=== PATIENT | female | born 1945 | race Caucasian/White ===

== ENCOUNTER 2020-03-28 19:42 | Inpatient (IN) | payer MEDICARE, SELFPAY ==
[2020-03-28] VITALS (41 sets, daily range): BP systolic 97–121; BP diastolic 56–91; PULSE 67–191; RESP 13–44; TEMP 35.9–36.8; O2SAT 96–99; BMI 32.1
--- NOTE | 2020-03-28 19:44 | XR_ITS ---
WS: [id number] PORTABLE CHEST HISTORY: cp COMPARISON: None available. Lungs are clear and well expanded. No pleural effusion or pneumothorax. Cardiac size: Normal. Mediastinum/Aorta: Partially calcified aorta. Degenerative changes at the AC joints. XR/XR chest 1V portable [id number] IMPRESSION: Partially calcified aorta. No acute cardiopulmonary disease.
--- NOTE | 2020-03-28 19:44 | ECG_ITS ---
Measurements Intervals [place] Rate: 191 P: MA: 0 QRS: 57 QRSD: 134 T: 215 QT: 260 QTc: 463 WIDE COMPLEX TACHYCARDIA POSSIBLY SUPRAVENTRICULAR TACHYCARDIA WITH ABBERRENCY INTRAVENTRICULAR CONDUCTION DELAY [130+ ms QRS DURATION] No previous ECG available for comparison Electronically Signed On 03-29-2020 19:42:27 CDT by Stefany Rehman M.D. [id number]
[2020-03-28 20:09] LABS: Basophils % 0.6 %; Eosinophils # 0.3 10^3/uL (0.0-0.8); Eosinophils % 4.2 %; Hematocrit 41.2 % (37.0-47.0); Hemoglobin 13.1 g/dL (11.5-15.3); Lymphocytes # 2.3 10^3/uL (0.8-4.8); Lymphocytes % 32.6 %; Mean Corpuscular HGB Conc 31.8 g/dL (30.0-36.0); Mean Corpuscular Hemoglobin 30.7 pg (28.0-34.0); Mean Corpuscular Volume 96.5 fL (81-99); Mean Platelet Volume 10.4 fL (7.4-10.4); Monocytes # 0.6 10^3/uL (0.2-0.9); Monocytes % 9.1 %; Neutrophils # 3.7 10^3/uL (1.8-7.7); Neutrophils % 53.1 %; Nucleated Red Blood Cells % 0 %; Platelet Count 367 10^3/cmm (130-400); Red Blood Count 4.27 10^6/uL (4.1-5.3); Red Cell Distribution Width 13.2 % (12.1-15.1); White Blood Count 6.9 10^3/uL (4.0-10.0)
[2020-03-28] MEDS: amiodarone 50 mg/mL SDV 3 mL 300 MG (20:20)
[2020-03-28 20:29] LABS: Alanine Aminotransferase 14 U/L (0-33); Albumin Level 4.4 g/dL (3.5-5.2); Alkaline Phosphatase 101 IU/L (35-105); Anion Gap 19.4 (5-19); Aspartate Amino Transferase 20 U/L (0-32); Blood Urea Nitrogen 14 mg/dL (8-23); Calcium 9.5 mg/dL (8.5-10.5); Carbon Dioxide 25 mmol/L (22-29); Chloride 96 mmol/L (98-107); Globulin 2.9 g/dL (1.3-4.6); Glucose 318 mg/dL (65-115); Magnesium 2.4 mg/dL (1.7-2.3); Osmolality Calculated 290 mOsm/kg (285-295); Potassium 4.4 mmol/L (3.5-5.1); Sodium 136 mmol/L (136-145); Total Bilirubin 0.2 mg/dL (0.15-1.2); Total Protein 7.3 g/dL (6.6-8.7)
[2020-03-28 20:31] LABS: Troponin(5th) Baseline 10 ng/mL (0-10)
--- NOTE | 2020-03-28 20:55 | W.ED.CHESTPA ---
HPI - Chest Pain General: Chief Complaint: Chest Pain Stated Complaint: cp Time Seen by Provider: 03/28/20 20:18 History of Present Illness: HPI narrative: Ms. Robert is a 74-year-old female who comes in complaining of chest discomfort. She states that she was at home when she had the abrupt onset of chest discomfort. She did not have any radiation of her symptoms it always stayed in her chest. She felt nauseated but did not vomit. She was slightly diaphoretic. Patient was not syncopal or near syncopal. Because of the chest discomfort though she was concerned about her heart this prompted her to come to the hospital for evaluation. She denies having anything like this in her past or any heart problems. She is unaware of anything that made her symptoms better or worse today. Associated symptoms: Reports dyspnea; Deny abdominal pain, diaphoresis, fever(s), nausea, palpitations, syncope or vomiting Review of Systems General: Reports: other (negative unless marked) Const: Denies: fever, chills, body aches, fatigue, malaise or diaphoresis Eyes: Denies: change in vision or blurry vision ENMT: Denies: throat pain, painful swallowing, hoarseness, ear pain, ear discharge, Change in hearing or nasal discharge Card: Reports: chest pain; Denies: palpitations, irregular heart rhythm, syncope, pre-syncope, shortness of breath on exertion or shortness of breath when lying down Resp: Reports: shortness of breath; Denies: productive cough, non-productive cough, wheezing, coughing up blood or chest congestion GI: Denies: abdominal pain, nausea, vomiting, vomiting blood, coffee grounds in vomit, diarrhea, constipation, cramping, blood in stool or black tarry stool : Denies: flank pain, painful urination, urinary frequency, urinary urgency, decreased urine ouput, urinary incontinence or blood in urine Musc: Denies: neck pain, back pain, extremity pain, extremity swelling, joint pain, joint swelling, joint warmth or joint stiffness Skin/Breast: Denies: rash, skin tenderness or yellow skin Neuro: Denies: headache, numbness in extremities, weakness in extremities, changes in sensation, lack of coordination, difficulty walking, dizziness, vertigo or confusion Endo: Denies: excessive thirst, tired all the time, cold intolerance, excessive sweating, flushing or hot flashes Daryl/Lymph: Denies: easy bruising, easy bleeding, petechiae or enlarged lymph nodes All/Imm: Denies: hives, throat swelling, tongue swelling, facial swelling or acute wheezing PFSH ED PFSH: Medical History Depression Diabetes mellitus GERD (gastroesophageal reflux disease) Hyperlipidemia Hypertension Surgical History H/O colonoscopy History of adenoidectomy History of lumpectomy of left breast History of tonsillectomy Tubal ligation status Family History (Updated 03/28/20 @ 22:03 by Remington Velásquez MD) Denies family history of Hyperlipidemia Lung disease Hypertension Social History (Updated 03/28/20 @ 22:03 by Remington Velásquez MD) Smoking and tobacco status: former smoker Alcohol intake: never Substance/Drug Use: never Household members: spouse Housing: House Physical Exam Const: COMMON NORMALS: no apparent distress, oriented x3, no limitations, healthy appearing and well nourished EXAM LIMITATIONS: no altered mental status GENERAL APPEARANCE: cooperative, well kempt and well developed ORIENTATION/CONSCIOUSNESS: Yes awake HENMT: COMMON NORMALS: normocephalic, head/scalp atraumatic, hearing grossly normal bilaterally, external ears normal, EAC's normal, external nose normal and moist oral mucous membranes HEAD & SCALP: normal to inspection, normocephalic and atraumatic FACE & SINUS: normal facial exam and face symmetric NOSE: external nose normal and nares normal EXTERNAL EAR: Yes external ears normal EXTERNAL AUDITORY CANAL: EAC's normal MOUTH: oral and palatal mucosa normal and tongue normal Eye: COMMON NORMALS: PERRL, EOMs intact bilaterally, conjunctivae normal and no scleral icterus GENERAL EYE: normal appearance of both eyes and normal light reflex CONJUNCTIVA: Yes conjunctivae normal SCLERA: sclerae normal CORNEA: Yes corneas normal PUPIL: Yes PERRL DIRECT OPHTHALMOSCOPY: Yes normal light reflex Neck/C-Spine: COMMON NORMALS: full ROM, no lymphadenopathy, supple, no meningeal signs and no JVD GENERAL: Yes normal visual inspection and Yes trachea midline CERVICAL SPINE: Yes cervical ROM normal Chest: COMMONS NORMALS: inspection of chest normal and palpation of chest normal Resp: COMMON NORMALS: normal respiratory effort, no retractions, no use of accessory muscles and clear to auscultation bilaterally EFFORT & INSPECTION: Yes able to speak in complete sentences AUSCULTATION: clear to auscultation bilaterally Cardio: COMMON NORMALS: no JVD, regular rhythm, S1 normal heart sound, S2 normal heart sound, no gallops, no clicks, no murmurs and no rub JUGULAR VENOUS DISTENTION: no JVD RATE: tachycardic RHYTHM: regular rhythm HEART SOUNDS: S1 normal and S2 normal GI: COMMON NORMALS: soft to palpation, non-tender, no hepatosplenomegaly and no masses INSPECTION: Yes normal to inspection PALPATION: Yes soft and Yes no hepatosplenomegaly : COMMON NORMALS: Yes no CVA tenderness BLADDER/KIDNEY EXAM: Yes no CVA tenderness Back/Pelvis: COMMON NORMALS: no CVA tenderness, thoracic and lumbar spine normal to inspection, no thoracic nor lumbar tenderness and thoraco-lumbar ROM normal Extremity: COMMON NORMALS: normal to inspection, full ROM, normal capillary refill, no joint enlargement, no clubbing, cyanosis or edema and no calf tenderness Neuro: COMMON NORMALS: oriented x3, CN's II-XII intact bilaterally, moves all extremities, no focal motor deficits and no sensory deficits noted MENINGEAL SIGNS: Yes no meningeal signs Psych: COMMON NORMALS: mental status grossly normal, thought process normal, cooperative, affect normal, speech normal and activity/motor behavior normal APPEARANCE: Yes well kempt SPEECH: Yes normal speech THOUGHT PROCESS: normal thought process Skin: COMMON NORMALS: no rashes or lesions noted, skin turgor normal, no jaundice, no petechiae and no mottling GENERAL SKIN EXAM: no rashes or lesions noted and turgor normal Course ED course: 2224 -the patient's heart rate has gone back up into the 180 range. It appears as again as though she is in a wide-complex tachycardia. The case was reviewed with Dr. Rehman by phone she recommends trying metoprolol to see if this slows her rate down and possibly convert her. If 1 dose is successful she recommends trying another. Dr. Velásquez is aware and is in agreement with this plan. Vital Signs: Vital signs: Vital Signs Temperature 96.7 F L 03/28/20 19:52 Pulse Rate 72 04/28/20 23:15 Respiratory Rate 44 H 03/28/20 23:15 Blood Pressure 121/60 03/28/20 23:15 Pulse Oximetry 98 03/28/20 23:15 MDM - Chest Pain MDM Narrative: Medical decision making narrative: Ms. Robert is a 74-year-old female who comes in with heart palpitations and chest pain. Her EKG immediately appeared as though she had a ventricular tachycardia but a normal blood pressure and normal mentation. She was in stable V. tach. There was no old EKG to compare to. She was given 2 separate amiodarone boluses of 150 mg over 10 minutes and then placed on a drip. Her heart rate slowed from the 190s down to the 150s but never got any slower. We were prepping to cardiovert her when her heart did convert and went to a sinus rhythm with what appears to be a left bundle branch block. We do not have any old EKGs to compare to to know if this left bundle branch block is old or a new issue. The case was reviewed with Dr. Rehman she agrees to consult on the patient in the ICU. I endorsed the case to Dr. Velásquez who will admit the patient to the ICU. At this time the working diagnosis is ventricular tachycardia although seeing a bundle branch block on the patient's second EKG does bring up the possibility of SVT with aberrancy or a flutter with aberrancy. The inpatient team can evaluate this further. Lab Data: Attestation: I reviewed the patient's lab results. Labs: Lab Results 03/28/20 03/28/20 03/28/20 Range/Units 20:02 20:02 20:02 WBC 6.9 (4.0-10.0) 10^3/ uL RBC 4.27 (4.1-5.3) 10^6/u L Hgb 13.1 (11.5-15.3) g/dL Hct 41.2 (37.0-47.0) % MCV 96.5 (81-99) fL MCH 30.7 (28.0-34.0) pg MCHC 31.8 (30.0-36.0) g/dL RDW 13.2 (12.1-15.1) % Plt Count 367 (130-400) 10^3/c mm MPV 10.4 (7.4-10.4) fL Neut % (Auto) 53.1 % Lymph % (Auto) 32.6 % [facility] % (Auto) 9.1 % Eos % (Auto) 4.2 % Baso % (Auto) 0.6 % Neut # (Auto) 3.7 (1.8-7.7) 10^3/u L Lymph # (Auto) 2.3 (0.8-4.8) 10^3/u L [facility] # (Auto) 0.6 (0.2-0.9) 10^3/u L Eos # (Auto) 0.3 (0.0-0.8) 10^3/u L Baso # (Auto) 0.0 (0.0-0.1) 10^3/u L Nucleated RBC % (a uto) 0 % Nucleated RBCs # 0.0 /100WBC D-Dimer (0-0.59) ug/mIFE U Sodium 136 (136-145) mmol/L Potassium 4.4 (3.5-5.1) mmol/L Chloride 96 L (98-107) mmol/L Carbon Dioxide 25 (22-29) mmol/L Anion Gap 19.4 H (5-19) BUN 14 (8-23) mg/dL Creatinine 1.4 H (0.5-0.9) mg/dL Glucose 318 H (65-115) mg/dL Calculated Osmolal ity 290 (285-295) mOsm/k g Calcium 9.5 (8.5-10.5) mg/dL Magnesium 2.4 H (1.7-2.3) mg/dL Total Bilirubin 0.2 (0.15-1.2) mg/dL AST 20 (0-32) U/L ALT 14 (0-33) U/L Alkaline Phosphata se 101 (35-105) IU/L Troponin T Baselin e 10 (0-10) ng/mL Total Protein 7.3 (6.6-8.7) g/dL Albumin 4.4 (3.5-5.2) g/dL Globulin 2.9 (1.3-4.6) g/dL 03/28/20 Range/Units 20:02 WBC (4.0-10.0) 10^3/ uL RBC (4.1-5.3) 10^6/u L Hgb (11.5-15.3) g/dL Hct (37.0-47.0) % MCV (81-99) fL MCH (28.0-34.0) pg MCHC (30.0-36.0) g/dL RDW (12.1-15.1) % Plt Count (130-400) 10^3/c mm MPV (7.4-10.4) fL Neut % (Auto) % Lymph % (Auto) % [facility] % (Auto) % Eos % (Auto) % Baso % (Auto) % Neut # (Auto) (1.8-7.7) 10^3/u L Lymph # (Auto) (0.8-4.8) 10^3/u L [facility] # (Auto) (0.2-0.9) 10^3/u L Eos # (Auto) (0.0-0.8) 10^3/u L Baso # (Auto) (0.0-0.1) 10^3/u L Nucleated RBC % (a uto) % Nucleated RBCs # /100WBC D-Dimer <= 0.27 (0-0.59) ug/mIFE U Sodium (136-145) mmol/L Potassium (3.5-5.1) mmol/L Chloride (98-107) mmol/L Carbon Dioxide (22-29) mmol/L Anion Gap (5-19) BUN (8-23) mg/dL Creatinine (0.5-0.9) mg/dL Glucose (65-115) mg/dL Calculated Osmolal ity (285-295) mOsm/k g Calcium (8.5-10.5) mg/dL Magnesium (1.7-2.3) mg/dL Total Bilirubin (0.15-1.2) mg/dL AST (0-32) U/L ALT (0-33) U/L Alkaline Phosphata se (35-105) IU/L Troponin T Baselin e (0-10) ng/mL Total Protein (6.6-8.7) g/dL Albumin (3.5-5.2) g/dL Globulin (1.3-4.6) g/dL Imaging Data^: CXR: My impression: No acute cardiopulmonary findings. EKG Data^: EKG 1: Attestation: I personally reviewed and interpreted this EKG as follows: EKG interpretation date: 03/28/20 EKG interpretation time: 19:49 Interpretation: Wide-complex tachycardia, probable ventricular tachycardia with a ventricular rate of 191. No old for comparison. EKG 2: Attestation: I personally reviewed and interpreted this EKG as follows: EKG interpretation date: 03/28/20 EKG interpretation time: 20:35 Interpretation: Normal sinus rhythm with a ventricular rate of 95 beats a minute, left bundle branch block, nonspecific ST and T wave changes. No old for comparison. Critical Care Time Critical Care Time: Critical Care Time: Yes Total Critical Care Time: 60 Attestation: Critical care time consisted of evaluating the patient, stabilizing the patient. Critical care time consisted of overseeing nursing place IVs and arranging for fluids, close blood pressure and vital sign monitoring. Critical care time consisted of overseeing antiarrhythmic medications being infused and a drip initiated. Critical care time consisted of prepping for possible cardioversion although this was not performed. Critical care time also consisted of phone consultation with specialist as well as old chart review. Discharge Plan Discharge Patient Disposition: Admitted As Inpatient Admit Provider: Remington Velásquez Clinical Impression: Ventricular tachycardia Condition: Stable Referrals: Sunil Baldwin MD [Primary Care Provider] - Discharge Date/Time: 03/28/20 23:22 Coding Level of Care Code ED Commercial Sales Manager for Chg Fwd Exam Comprehensive
--- NOTE | 2020-03-28 21:06 | P.HP_ITS ---
Providers/Chief Complaint Primary Care Provider: Sunil Baldwin MD Chief Complaint: cp History of Present Illness Paige Robert is a 74 year old female with no significant past medical history of coronary disease, [place] with chief complaint of chest heaviness. 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 She did not experience any palpitations, nausea, vomiting, diaphoresis. She is denying any previous history of coronary disease, stents, [place]. She has never experienced these kind of symptoms before. She is denying sick contacts, exertional activities, smoking, recreational drugs, social stressors. Diagnostics in ER revealed wide QRS tachycardia, she was given amiodarone 150 mg twice which converted her rhythm to normal sinus, initially her blood pressure was systolic 90 mmHg (ER physician was planning to do electrical cardioversion )which improved after converting to normal sinus rhythm Dr. Rehman has been notified Normal potassium and magnesium level Negative d-dimer Review of Systems Const: Denies: fever, chills or body aches Eyes: Denies: change in vision ENMT: Denies: throat pain Card: Reports: chest pain and palpitations; Denies: swelling of feet/ankles, syncope or pre-syncope Resp: Reports: shortness of breath; Denies: productive cough or non-productive cough GI: Denies: abdominal pain, nausea, vomiting or coffee grounds in vomit : Reports: flank pain; Denies: difficulty urinating Musc: Denies: neck pain or back pain Skin/Breast: Denies: rash Neuro: Denies: headache Psych: Denies: anxiety Endo: Denies: excessive urination Daryl/Lymph: Denies: easy bruising All/Imm: Denies: hives Medications/Allergies Home Medications Medication Instructions Recorded Confirmed Last Taken Type ascorbic acid (vitamin C) [Vitamin 1,000 mg PO Q12H 03/28/20 03/28/20 03/28/20 History C] aspirin 81 mg PO DAILY 03/28/20 03/28/20 03/28/20 History atorvastatin 200 mg PO DAILY 03/28/20 03/28/20 03/28/20 History cholecalciferol (vitamin D3) 25 mcg PO DAILY 03/28/20 03/28/20 03/28/20 History [Vitamin D3] empagliflozin [Jardiance] 10 mg PO DAILY 03/28/20 03/28/20 03/28/20 History insulin glargine [Lantus U-100 See Rx Instructions .ROUTE .COMPLEX 03/28/20 03/28/20 03/27/20 History Insulin] iron 325 mg PO DAILY 03/28/20 03/28/20 03/28/20 History lisinopril 10 mg PO DAILY 03/28/20 03/28/20 03/28/20 History magnesium 200 mg PO DAILY 03/28/20 03/28/20 03/28/20 History metformin 1,000 mg PO BID 03/28/20 03/28/20 03/28/20 History sertraline 50 mg PO DAILY 03/28/20 03/28/20 03/28/20 History Allergies Allergy/AdvReac Type Severity Reaction Status Date / Time No Known Allergies Allergy Verified 03/28/20 19:58 PFSH Acute PFSH: Medical History Depression Diabetes mellitus GERD (gastroesophageal reflux disease) Hyperlipidemia Hypertension Surgical History H/O colonoscopy History of adenoidectomy History of lumpectomy of left breast History of tonsillectomy Tubal ligation status Family History (Updated 03/28/20 @ 22:03 by Remington Velásquez MD) Denies family history of Hyperlipidemia Lung disease Hypertension Social History (Updated 03/28/20 @ 22:03 by Remington Velásquez MD) Smoking and tobacco status: former smoker Alcohol intake: never Substance/Drug Use: never Household members: spouse Housing: House Vitals/I&O/Wt Last Vital Signs Temp 96.7 F L 03/28/20 19:52 Pulse 169 H 03/28/20 20:21 Resp 19 H 03/28/20 20:21 BP 107/83 03/28/20 20:21 Pulse Ox 96 03/28/20 20:21 Weight last 48 hrs Weight 77.111 kg Physical Exam Narrative: EXAM NARRATIVE: Very pleasant female lying comfortably in her bed Normal hemodynamics Telemetry shows normal sinus rhythm heart rate 60s to 80s, blood pressure 111/60 Saturating well on room air No active chest pain S1, S2 no murmur No signs of heart failure Neurologically nonfocal exam Abdomen soft nontender nondistended Lungs are clear to auscultation EOMI, PERRLA Skin does not show any sign ischemia gangrene or ulcer Appropriate mood and affect Data : 03/28/20 20:02 03/28/20 20:02 A&P Assessment and plan (1) Wide QRS ventricular tachycardia: Status: Acute Additional A&P Information Wide QRS tachycardia No inciting event identified uptill now, no previous history of coronary disea se, patient is denying family history of structural heart disease, she has been working outside but she thinks she never exerted herself, no social stressors EKG showed wide QRS tachycardia which improved with amiodarone, normal potassium and mag level Current EKG showing normal sinus rhythm with left bundle branch block I believe she had catecholaminergic surge from her physical activity which in duced SVT with aberrant conduction which looked like V. tach Echo in the morning to rule out structural heart disease Cardiology is consulted, baseline troponin not significantly high(waiting for 2-hour troponin) I would not order stress test at this point however she has risk factors for coronary disease, I will keep her n.p.o. after midnight in case cardiology recommends ruling out coronary ischemia Type 2 diabetes: Cardiac diet, moderate sliding scale We will check A1c level, current blood sugar 318 MIKAYLA: I do not have baseline creatinine, I would hold lisinopril for now Patient does not look fluid overloaded or dehydrated Monitor creatinine, patient is denying signs of UTI, Full code DVT prophylaxis: Heparin Attestations Medical Necessity Statement*: Anticipating discharge in less than 48 hours continued ICU because she presented with paroxysmal wide QRS tachycardia currently stable on amiodarone Time Spent in Patient Care: 40 Coding Level of Care Code Acute Medical Billing Coordinator for Latanya Sexton Diagnoses Wide QRS ventricular tachycardia I47.2
--- NOTE | 2020-03-28 21:44 | ECG_ITS ---
Measurements Intervals [place] Rate: 95 P: 52 [place]: 152 QRS: 46 QRSD: 142 T: 108 QT: 408 QTc: 514 SINUS RHYTHM LEFT BUNDLE BRANCH BLOCK No previous ECG available for comparison Electronically Signed On 03-29-2020 19:47:57 CDT by Stefany Rehman M.D. [email or web address]
[2020-03-28 21:51] LABS: D Dimer <= 0.27 ug/mIFEU (0-0.59)
[2020-03-28 22:05] LABS: Troponin 5 2HR 25.25 ng/mL (0-10)
[2020-03-28 22:17] LABS: Troponin 5 2HR Delta 15.25 ABS# (0-10)
--- NOTE | 2020-03-28 22:42 | ECG_ITS ---
Measurements Intervals [place] Rate: 69 P: 31 [place]: 139 QRS: 49 QRSD: 88 T: 38 QT: 435 QTc: 468 SINUS RHYTHM WARNING: DATA QUALITY MAY AFFECT INTERPRETATION No previous ECG available for comparison Electronically Signed On 03-29-2020 19:34:43 CDT by Stefany Rehman M.D. [id number]
[2020-03-28] MEDS: metoprolol tartrate 1 mg/1 mL SDV 5 mL 5 MG IV ×2 (22:44)
[2020-03-28 23:26] LABS: Urine Appearance Clear (CLEAR); Urine Color Yellow (Yellow); pH Urine 6 (5-7)
[2020-03-28 23:27] LABS: Amphetamines Screen Urine Negative (Negative); Bacteria Urine TRACE; Barbiturates Screen Urine Negative (Negative); Benzodiazepines Screen Urine Negative (Negative); Bilirubin Urine Neg (NEGATIVE); Blood Urine Neg (Negative); Cocaine Screen Urine Negative (Negative); Glucose Urine UA 4+ (Normal); Ketones Urine Negative (Negative); Leukocyte Esterase Urine Negative (Negative); Nitrate Urine Negative (Negative); Opiate Screen Urine Negative (Negative); PCP Screen Urine Negative (Negative); Protein Urine Neg (Negative); RBC Urine 0-4 /hpf (0-2); Squamous Epithelial Cell Urine RARE (0-5); THC Screen Urine Negative (Negative); Urobilinogen Urine Norm (Negative); WBC Urine 0-4 /hpf (0-5)
[2020-03-28 23:50] LABS: Estmated Average Glucose 212
[2020-03-29] VITALS (92 sets, daily range): BP systolic 96–145; BP diastolic 47–76; PULSE 58–95; RESP 10–28; TEMP 36.4–36.8; O2SAT 92–97
[2020-03-29 00:03] LABS: Thyroid Stimulating Hormone 3.07 uIU/mL (0.27-4.20)
[2020-03-29] MEDS: heparin 5,000 unit/mL INJ 1 mL 5000 UNIT SUBCUT (00:07)
--- NOTE | 2020-03-29 01:44 | ECG_ITS ---
Measurements Intervals [place] Rate: 68 P: 46 [place]: 148 QRS: 56 QRSD: 86 T: 41 QT: 435 QTc: 463 SINUS RHYTHM LOW QRS VOLTAGE IN PRECORDIAL LEADS [QRS DEFLECTION < 1.0 mV IN CHEST LEADS] No previous ECG available for comparison Electronically Signed On 03-29-2020 19:46:48 CDT by Stefany Rehman M.D. [id number] f
[2020-03-29 02:07] LABS: Troponin 5 6HR 95.25 ng/mL (0-10)
[2020-03-29 02:10] LABS: Troponin 5 6HR Delta 85.25 ng/L (0-12)
[2020-03-29 02:55] LABS: Basophils % 0.5 %; Eosinophils # 0.3 10^3/uL (0.0-0.8); Eosinophils % 4.1 %; Hemoglobin 10.3 g/dL (11.5-15.3); Lymphocytes # 2.2 10^3/uL (0.8-4.8); Lymphocytes % 28.1 %; Mean Corpuscular HGB Conc 30.3 g/dL (30.0-36.0); Mean Corpuscular Hemoglobin 29.8 pg (28.0-34.0); Mean Corpuscular Volume 98.3 fL (81-99); Mean Platelet Volume 10.6 fL (7.4-10.4); Monocytes # 0.8 10^3/uL (0.2-0.9); Monocytes % 9.8 %; Neutrophils # 4.4 10^3/uL (1.8-7.7); Neutrophils % 57.2 %; Nucleated Red Blood Cells % 0 %; Platelet Count 301 10^3/cmm (130-400); Red Blood Count 3.46 10^6/uL (4.1-5.3); Red Cell Distribution Width 13.4 % (12.1-15.1); White Blood Count 7.6 10^3/uL (4.0-10.0)
[2020-03-29 03:10] LABS: Anion Gap 15.4 (5-19); Blood Urea Nitrogen 14 mg/dL (8-23); Calcium 8.7 mg/dL (8.5-10.5); Carbon Dioxide 25 mmol/L (22-29); Chloride 104 mmol/L (98-107); Glucose 187 mg/dL (65-115); Osmolality Calculated 291 mOsm/kg (285-295); Potassium 4.4 mmol/L (3.5-5.1); Sodium 140 mmol/L (136-145)
[2020-03-29] MEDS: clopidogrel 300 mg Tablet PO (03:43)
[2020-03-29] MEDS: atorvastatin 40 mg Tablet 80 MG PO ×2 (03:43→20:42)
[2020-03-29] MEDS: aspirin 325 mg EC Tablet PO (03:43)
[2020-03-29 03:50] LABS: Partial Thromboplastin Time 29.5 SECONDS (23.9-36.7)
[2020-03-29] MEDS: heparin 5,000 unit/mL INJ 1 mL IV (04:20)
[2020-03-29] MEDS: heparin drip 25,000 UNIT/500 ML PREMIX 23 UNIT IV (04:21)
--- NOTE | 2020-03-29 07:00 | USCV_ITS ---
Robert Paige Age: 74 Gender: F : 1945 Exam Date: 03/29/2020 06:14 Ordering Phys: Remington Velásquez MD Technologist: Lore Gomez Exam Location: [facility] Indication: TACHYCARDIA BP: 116 / 64 HR: 65 Rhythm: Sinus Technical Quality: Adequate MEASUREMENTS (Male / Female) Normal Values 2D ECHO LV Diastolic Diameter PLAX 3.6 cm 4.2 - 5.9 / 3.9 - 5.3 cm LV Systolic Diameter PLAX 1.9 cm LV Chamber Size 2.8 cm IVS Diastolic Thickness 1.1 cm 0.6 - 1.0 / 0.6 - 0.9 cm IVS Systolic Thickness 1.2 cm LVPW Diastolic Thickness 1.8 cm 0.6 - 1.0 / 0.6 - 0.9 cm LVPW Systolic Thickness 2.1 cm RV Chamber Size 3.1 cm LVOT Diameter 2.0 cm LV Ejection Fraction 2D Teich 78.6 % LV Ejection Fraction MOD 2C 73.4 % LV Ejection Fraction 2C AL 73.5 % LA Diameter 4.4 cm LA Width 3.7 cm LA Height 4.3 cm RA Width 3.5 cm RA Height 3.3 cm M-MODE LV Diastolic Diameter MM 4.4 cm 4.2 - 5.9 / 3.9 - 5.3 cm LV Systolic Diameter MM 3.2 cm LV Ejection Fraction MM Teich 53.5 % IVS Diastolic Thickness MM 0.8 cm 0.6 - 1.0 / 0.6 - 0.9 cm IVS Systolic Thickness MM 0.9 cm LVPW Diastolic Thickness MM 1.1 cm 0.6 - 1.0 / 0.6 - 0.9 cm LVPW Systolic Thickness MM 1.4 cm Aortic Annulus Diameter 2.5 cm LA Ao Ratio MM 1.8 MV E Point Septal Separation 0.9 cm DOPPLER AV Peak Velocity 199.0 cm/s LVOT Peak Velocity 89.0 cm/s AV Area Cont Eq vti 1.5 cm squared AV Area Cont Eq pk 1.5 cm squared MV Area PHT 4.6 cm squared Mitral E to A Ratio 1.9 MV E' Velocity 14.0 cm/s Mitral E to MV E' Ratio 7.4 Mitral E to LV E' Lateral Ratio 6.5 Mitral E to LV E' Septal Ratio 8.5 TR Peak Velocity 192.0 cm/s TR Peak Gradient 14.7 mmHg TV Peak E Velocity 38.0 cm/s Right Atrial Pressure 3.0 mmHg Pulmonary Artery Systolic Pressu 17.7 mmHg PV Peak Velocity 64.0 cm/s RV Acceleration Time 0.1 s RV Ejection Time 0.4 s RV AcT/ET 0.3 FINDINGS Left Ventricle Normal left ventricular cavity size. Normal left ventricular systolic function. No regional wall motion abnormalities. Left ventricular ejection fraction is estimated at 55 %. Grade II/IV diastolic dysfunction, moderately elevated filling pressures. Right Ventricle The right ventricle is normal in size and function. Right Atrium The right atrium is normal in size. Left Atrium The left atrium is normal in size. Mitral Valve Moderately thickened mitral valve. No mitral valve stenosis. Trace mitral valve regurgitation. Aortic Valve Moderate aortic valve calcification. Mild aortic valve stenosis, mean gradient 8.4 mmHg, DEON 1.5 cm squared. Trace aortic valve regurgitation. Tricuspid Valve Structurally normal tricuspid valve without significant stenosis or regurgitation. Pulmonary artery systolic pressure is normal. Pulmonic Valve Structurally normal pulmonic valve without significant stenosis. There is no pulmonic regurgitation. Pericardium Normal pericardium without effusion. Aorta Normal ascending aorta dimension. CONCLUSIONS 1-Normal left ventricular cavity size. Normal left ventricular systolic function. No regional wall motion abnormalities. Left ventricular ejection fraction is estimated at 55 %. Grade II/IV diastolic dysfunction, moderately elevated filling pressures. 2-Moderate aortic valve calcification. Mild aortic valve stenosis, mean gradient 8.4 mmHg, DEON 1.5 cm squared. Trace aortic valve regurgitation. 3-Moderately thickened mitral valve. No mitral valve stenosis. Trace mitral valve regurgitation. 4-There is no pericardial effusion. 5-Pulmonary artery systolic pressure is within normal limits. 6-Right atrial pressure is around 5 mm of mercury. 7-There are no prior echocardiogram studies to compare. Remington Felix MD (Electronically Signed) Final Date: 29 March 2020 08:56 S
--- NOTE | 2020-03-29 08:00 | PC.NURSE ---
Amiodarone gtt titrated to 0.5 mg/min.
--- NOTE | 2020-03-29 08:10 | PC.NURSE ---
Pt's blood glucose at 0745 was 148. Glucometer not scanned on pt.
--- NOTE | 2020-03-29 09:00 | PC.NURSE ---
Advised by Dr Timmy Rodriguez to hold [address] Patel arrives to see pt closer to 10 to determine potential med changes.
--- NOTE | 2020-03-29 09:13 | P.PN_ITS ---
Subjective Subjective: Interval history: History and physical reviewed. Patient reports during episode she had chest discomfort, sweating, shortness of breath. She reports she has absolutely no symptoms now and feels fine. She also relates she had no preceding symptoms prior to this event. Medications: Reviewed: Yes Vitals/I&O/Wt Last Vital Signs Temp 98.2 F 03/28/20 23:20 Pulse 93 03/29/20 07:33 Resp 19 H 03/29/20 06:10 BP 116/64 03/29/20 06:10 Pulse Ox 95 03/29/20 07:33 03/28/20 03/29/20 03/29/20 22:59 06:59 14:59 Intake Total 0 / 0 Output Total 400 / 400 Balance -400 / -400 Weight last 48 hrs Weight 77.111 kg Physical Exam Narrative: EXAM NARRATIVE: General exam no apparent distress Cardiovascular regular rate and rhythm without murmur Lungs clear Abdomen is soft with positive bowel sounds Extremities no cyanosis clubbing or edema Data : 03/29/20 02:48 03/29/20 02:48 A&P Assessment and plan (1) Wide QRS ventricular tachycardia: Following conversion of tachycardia she was in a left bundle. Now she is in a narrow complex normal sinus rhythm. She is currently on an amiodarone drip. Metoprolol has been initiated. Magnesium level was normal. TSH was normal. Status: Acute Additional A&P Information Acute kidney injury, improved chest discomfort. Troponin with significant increase. Consistent with non-ST elevation myocardial infarction. Plavix, aspirin, beta-sarah, anticoagulation with heparin, and statin have all been initiated. Cardiology to evaluate. Echocardiogram pending. Type 2 diabetes. Sliding scale. Reduce Lantus dose to 15 units as she may be n.p.o. at times. Full code DVT prophylaxis with heparin Attestations Medical Necessity Statement*: Needs continued hospitalization for further evaluation of tachyarrhythmia. Coding Level of Care Code Acute Windows Software Engineer for Latanya Sexton Diagnoses Wide QRS ventricular tachycardia I47.2
--- NOTE | 2020-03-29 10:24 | XACV_ITS ---
Exam Room: [facility] Ht: 155 cm Wt: 77 kg BSA: 1.85 m2 Gender: Female : 1945 Any Known Allergies: No known allergies Exam Priority: Routine Procedure(s): Procedure Description: Diagnostic procedure Procedure Description: Left Heart Catheterization Procedure Description: Coronary Angiography Diagnostic Findings LM has 0% stenosis. CX has 0% stenosis. pLAD: Mild 20% stenosis, MARC: 3 flow. pRCA: Mild 20% stenosis, MARC: 3 flow. Coronary angiography shows left dominance. Conclusions There appeared to be separate ostium without left main #1 LAD has luminal irregularity#2 LCx is luminal irregularities it is a dominant vessel#3 RCA is nondominant small vessel with proximal 20% stenosis . Indication for angiogram: Abnormal cardiac markers, dyspnea chest pain. Recommendations Continue current medical management and risk factor modification. Diagnostic RX Recommendation: medical therapy and/or counseling Pressures Phase:Rest AO : 105 mmHg / 51 mmHg ( 73 mmHg ) @ 7:38:00 AM 110 mmHg / 52 mmHg ( 75 mmHg ) @ 7:38:00 AM 91 mmHg / 64 mmHg ( 78 mmHg ) @ 7:40:00 AM 80 mmHg / 60 mmHg ( 70 mmHg ) @ 7:41:00 AM LV : 116 mmHg / -7 mmHg / @ 7:38:00 AM 117 mmHg / -6 mmHg / @ 7:38:00 AM Valves Phase:DefaultPhase AV : 11.0 mmHg @ 12:49:12 PM AV Mean Gradient: 12.0 mmHg @ 12:49:12 PM Clinical Evaluation EBL: 5mL-10mL Procedural Details Procedure Consent Obtained. Current Diagnosis : Chest Pain. Pre-Procedure Time Out. Identified patient by full name and date of as verbalized by the patient/guarantor. Does the consent match the physician's order: Yes. Accurate & Complete Informed Consent: Yes. Inpatient/Outpatient History & Physical on Chart: Yes. If H&P is completed, is and addenduem needed: No; If yes, is the addendum complete: N/A. Visualize and Verify Site with Patient/Guarantor: N/A. Relevant Radiology Images available: Yes. Pre-op teaching completed and patient verbalized understanding. The risks, benefits, and alternatives of sedation and/or procedure were discussed by physician. The patient agrees to continue. Procedure started. [facility] Clinical Fraility Score: 3: Managing Well. Desktop Support Associate Indications: Cardiac Arrhythmia. Chest Pain Symptom Assessment: Typical Angina Symptoms. Correct patient, site and procedure confirmed by cath team. Current diagnosis: Chest Pain. PERRLA. 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 Lungs clear x 5 lobes. Physician arrived. IV Site on Arrival: 20 gauge in the right anticubital. IV Fluids: 0.9% NaCl at KVO. 0 mL infused prior to labor economist. Oxygen started at 2liters/min via nasal canula. right radial was prepped with chloroprep then draped in the usual sterile fashion. right groin was prepped with chloroprep then draped in the usual sterile fashion. Baseline sample Acquired. HR: 68 BPM. Patient's family unavailable due to patient visitor policy. Dr. Felix called the patients before starting the procedure. Physician scrubbed in. Immediate Pre-Procedure Time Out. Correct Patient: Yes; Correct Procedure: Yes; Correct Site: Yes; Correct Patient Position: Yes; Correct Supplies: Yes; Dried Flammable Prep: Yes; Blood Products Available: N/A;. Lidocaine 1% infiltrated to the right radial. Arterial access obtained. A 5 colombian TIG catheter in over wire. EDP Sample taken: LV 116/-7,4; HR: 70 BPM; SpO2: 99%. Pullback taken: LV 117/-7,4; AO 105/51(73); Mean: 12mmHg, Peak to Peak: 11mmHg, SEP: 20sec/min; HR: 70 BPM; SpO2: 98%. Multiple views taken of left coronary artery. Catheter redirected to the RCA. Multiple views taken of right coronary artery. Catheter removed over the exchange wire. Physician scrubbed out. TR band placed. Hemostasis obtained. A TR Band was successful obtaining hemostatsis at the Right Radial artery insertion site. Post Procedure: Pulses reassessed and unchanged. PERRLA. 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 No VTE prophylaxis required. Medication's Wasted: Lidocaine 1% = 18 mL. Medication's Wasted: Heparin = 1000 units. Total IV fluids: 29.2 mL. Contrast type used: Omnipaque 300 mgI/mL, 500 mL bottle. Post-op diagnosis: Nornal Coronaries. Complications: None. Estimated blood loss: 5mL-10mL. Procedure completed. Patient transferred by wheelchair to ICU. Vital chart was stopped. Site: Right Radial artery Sheath Size: 6 Fr Hemostasis Method: TR Band Hemostasis Success: Successful Procedure Medications Start: 12:25 PM Stop: 12:25 PM Medication: Versed Amount: 1 mg Route: I.V. Start: 12:25 PM Stop: 12:25 PM Medication: Fentanyl Amount: 50 mcg Route: I.V. Start: 12:36 PM Stop: 12:36 PM Medication: Nitrogylcerin Amount: 200 mcg Route: I.A. Start: 12:40 PM Stop: 12:40 PM Medication: Versed Amount: 1 mg Route: I.V. Start: 12:40 PM Stop: 12:40 PM Medication: Fentanyl Amount: 50 mcg Route: I.V. I, the attending physician, have reviewed and verified all procedure medications. Yes, all medications given per verbal order History/Risk Factors Hypertension: Yes Dyslipidemia: No Diabetic Therapy: Insulin Peripheral Arterial Disease (PAD): No Myocardial Infarction (WI): No Obesity: No Renal Disease: No Tobacco Use: Former Prior Interventions PCI: No CABG: No Valve Surgery: No Report Signatures Finalized by:Remington Felix MD on 04/02/2020 3:07:46 PM
--- NOTE | 2020-03-29 10:26 | PM.CONSULT ---
Providers/Reason For Consult Consulting Physican/Specialty*: Dr. Rehman, cardiology Reason for Consult*: Wide-complex tachycardia Attending Physician: Blu Rodriguez MD Primary Care Provider: Sunil Baldwin MD History of Present Illness History of Present Illness Paige Robert is a 74 year old female with past medical history of hypertension, insulin-dependent diabetes mellitus type 2 and hyperlipidemia for last 17 years. She is also a former smoker and quit smoking in 2005 after [id number] history of smoking. She denies having any prior CAD and prior ischemia testing. At baseline she is able to push her lawn more and walk 2 and half miles without any exertional symptoms. She did that about a week back. Yesterday she was in her usual state of health when around 7 PM she bent over and developed some chest pressure along with shortness of breath anxious feeling and some sweating. She presented to the ER with her and EKG revealed wide complex tachycardia at 191 bpm. Her baseline troponin was 10 and electrolytes were within normal limits. She was hemodynamically stable and received amiodarone 150 mg IV x1 that slowed her down followed by another amiodarone 150 mg IV bolus that converted her to sinus rhythm with left bundle branch block. Later on in the night she went back into this rhythm and converted to sinus rhythm after administration of metoprolol 5 mg IV. She has done well overnight. Telemetry reveals sinus rhythm with PVC couplets/aberrant PACs. At the time of evaluation she remains chest pain-free. Review of Systems Const: Denies: fever, chills or body aches Eyes: Denies: change in vision ENMT: Denies: throat pain Card: Reports: chest pain and palpitations; Denies: swelling of feet/ankles, syncope or pre-syncope Resp: Reports: shortness of breath; Denies: productive cough or non-productive cough GI: Denies: abdominal pain, nausea, vomiting or coffee grounds in vomit : Reports: flank pain; Denies: difficulty urinating Musc: Denies: neck pain or back pain Skin/Breast: Denies: rash Neuro: Denies: headache Psych: Denies: anxiety Endo: Denies: excessive urination Daryl/Lymph: Denies: easy bruising All/Imm: Denies: hives Meds/Allergies Home Medications and Allergies Home Medications Medication Instructions Recorded Confirmed Last Taken Type ascorbic acid (vitamin C) [Vitamin 1,000 mg PO Q12H 03/28/20 03/28/20 03/28/20 History C] aspirin 81 mg PO DAILY 03/28/20 03/28/20 03/28/20 History atorvastatin 200 mg PO DAILY 03/28/20 03/28/20 03/28/20 History cholecalciferol (vitamin D3) 25 mcg PO DAILY 03/28/20 03/28/20 03/28/20 History [Vitamin D3] empagliflozin [Jardiance] 10 mg PO DAILY 03/28/20 03/28/20 03/28/20 History insulin glargine [Lantus U-100 See Rx Instructions .ROUTE .COMPLEX 03/28/20 03/28/20 03/27/20 History Insulin] iron 325 mg PO DAILY 03/28/20 03/28/20 03/28/20 History lisinopril 10 mg PO DAILY 03/28/20 03/28/20 03/28/20 History magnesium 200 mg PO DAILY 03/28/20 03/28/20 03/28/20 History metformin 1,000 mg PO BID 03/28/20 03/28/20 03/28/20 History sertraline 50 mg PO DAILY 03/28/20 03/28/20 03/28/20 History Allergies Allergy/AdvReac Type Severity Reaction Status Date / Time No Known Allergies Allergy Verified 03/28/20 19:58 Current Medications Current Medications Generic Name Dose Route Start Last Admin Trade Name Freq PRN Reason Stop Dose Admin Atorvastatin Calcium 80 mg 03/29/20 02:40 03/29/20 03:43 Lipitor PO 80 mg BEDTIME GERTRUDE Administration Heparin Sodium (Beef Lung) 0 unit 03/29/20 02:36 03/29/20 04:20 Heparin IV 4,100 unit PRN PRN Administration Heparin weight-base protocol Protocol Amiodarone HCl 900 mg/ 518 mls @ 0 mls/hr 03/28/20 23:20 03/29/20 08:00 Dextrose/ IV Miscellaneous IV 0.5 mg/min Supplies .Q0M GERTRUDE 17.3 mls/hr Administration Protocol Per Protocol Heparin Sodium/Sodium Chloride 25,000 unit in 500 mls @ 0 mls/hr 03/29/20 02:45 03/29/20 04:21 Heparin Drip IV 14.91 unit/kg/hr .Q0M GERTRUDE 23 mls/hr Administration Protocol Per Protocol Insulin Aspart 0 unit 03/29/20 08:00 03/29/20 08:28 Novolog SUBCUT 4 unit WM&BEDTIME GERTRUDE Administration Protocol Lisinopril 10 mg 03/29/20 09:00 03/29/20 10:25 Prinivil PO Not Given DAILY GERTRUDE PFSH Acute PFSH: Medical History Depression Diabetes mellitus GERD (gastroesophageal reflux disease) Hyperlipidemia Hypertension Surgical History H/O colonoscopy History of adenoidectomy History of lumpectomy of left breast History of tonsillectomy Tubal ligation status Family History Denies family history of Hyperlipidemia Lung disease Hypertension Social History (Updated 03/28/20 @ 22:03 by Remington Velásquez MD) Smoking and tobacco status: former smoker Alcohol intake: never Substance/Drug Use: never Household members: spouse Housing: House Vitals/I&O/Wt Last Vital Signs Temp 98.2 F 03/28/20 23:20 Pulse 63 03/29/20 08:00 Resp 13 03/29/20 08:00 BP 125/66 03/29/20 08:00 Pulse Ox 95 03/29/20 07:33 03/28/20 03/29/20 03/29/20 22:59 06:59 14:59 Intake Total 0 / 0 Output Total 400 / 400 Balance -400 / -400 Weight last 48 hrs Weight 170 lb Physical Exam Const: COMMON NORMALS: no apparent distress, oriented x3 and alert GENERAL APPEARANCE: cooperative, comfortable, well kempt and well hydrated HENMT: COMMON NORMALS: normocephalic, head/scalp atraumatic, hearing grossly normal bilaterally, external ears normal, external nose normal and moist oral mucous membranes HEAD & SCALP: normocephalic and atraumatic FACE & SINUS: normal facial exam NOSE: external nose normal EXTERNAL EAR: Yes external ears normal Eye: COMMON NORMALS: PERRL, EOMs intact bilaterally, conjunctivae normal and no scleral icterus GENERAL EYE: normal appearance of both eyes EYELID: eyelids normal CONJUNCTIVA: Yes conjunctivae normal SCLERA: sclerae normal PUPIL: Yes PERRL Neck/C-Spine: COMMON NORMALS: no lymphadenopathy, supple, no JVD and thyroid normal THYROID: thyroid normal CAROTIDS: Yes normal carotid upstroke CERVICAL SPINE: Yes cervical ROM normal Chest: COMMONS NORMALS: inspection of chest normal and palpation of chest normal CHEST: Yes symmetrical chest wall rise and No tenderness Resp: COMMON NORMALS: clear to auscultation bilaterally and percussion normal AUSCULTATION: clear to auscultation bilaterally, no crackles, no rales, no rhonchi, no wheezes and vesicular breath sounds PERCUSSION: percussion normal Cardio: COMMON NORMALS: no JVD, regular rate, regular rhythm, S1 normal heart sound, S2 normal heart sound and peripheral pulses 2+ throughout PALPATION: normal PMI RATE: regular rate RHYTHM: regular rhythm HEART SOUNDS: S1 normal, S2 normal, no click, no gallops and no murmurs BRUITS: no carotid bruits PERIPHERAL PULSES: pulses 2+ throughout, radial pulses present, femoral pulses present, posterior tibial pulses present and dorsalis pedis pulses present GI: COMMON NORMALS: soft to palpation AUSCULTATION: Yes normoactive bowel sounds PALPATION: Yes soft, No tender, No guarding, No rigid and No pulsatile mass Extremity: GENERAL: No calf tenderness, No clubbing, No cyanosis, No edema and No pallor Neuro: COMMON NORMALS: oriented x3, CN's II-XII intact bilaterally and no focal motor deficits SENSORIUM/ORIENTATION: Yes alert Psych: COMMON NORMALS: thought process normal and speech normal APPEARANCE: Yes well kempt SPEECH: Yes normal speech MOOD & AFFECT: Yes euthymic mood THOUGHT PROCESS: normal thought process THOUGHT CONTENT: Yes normal thought content Data Labs: Other Labs: Troponin T 120 minutes of 25 and troponin I 6 hours of 95. Normal TSH. Normal liver panel. Hemoglobin A1c of 9. Imaging^: TTE: I personally reviewed and interpreted this imaging study as follows: My impression: CONCLUSIONS 1-Normal left ventricular cavity size. Normal left ventricular systolic function. No regional wall motion abnormalities. Left ventricular ejection fraction is estimated at 55 %. Grade II/IV diastolic dysfunction, moderately elevated filling pressures. 2-Moderate aortic valve calcification. Mild aortic valve stenosis, mean gradient 8.4 mmHg, DEON 1.5 cm squared. Trace aortic valve regurgitation. 3-Moderately thickened mitral valve. No mitral valve stenosis. Trace mitral valve regurgitation. 4-There is no pericardial effusion. 5-Pulmonary artery systolic pressure is within normal limits. 6-Right atrial pressure is around 5 mm of mercury. 7-There are no prior echocardiogram studies to compare. CXR: Radiologist's impression: Chest x-ray with no acute cardiopulmonary disease. A&P Assessment and plan (1) Wide-complex tachycardia: Wide-complex tachycardia in ER: VT versus SVT with aberrancy. -The rhythm does not meet Brugada criteria for VT. Patient converted to normal sinus rhythm after administration of metoprolol. I think likely this is supraventricular tachycardia with aberrancy (LBBB). -She does have multiple CAD risk factors including hypertension, poorly controlled diabetes mellitus, former smoking history and dyslipidemia. Her troponin has increased to 95 which can be in setting of tachyarrhythmia. However given multiple risk factors, I think she would benefit from coronary angiogram to rule out ischemia as underlying etiology. Status: Acute (2) NSTEMI (non-ST elevated myocardial infarction): Non-ST elevation IL type I versus type II. --She received loading dose of Plavix last night and has been started on heparin drip. Continue aspirin Plavix and plan to proceed with coronary angiogram with Dr. Felix. -Risks and benefits were discussed with the patient and she is agreeable with the same. 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 Please feel free to call with questions or concerns. Coding Level of Care Code Acute Bonding Machine Setter for [facility] Fwd Exam Comprehensive Diagnoses Wide-complex tachycardia I47.2 NSTEMI (non-ST elevated myocardial infarction) I21.4 Hypertension I10 Hypertension type: essential hypertension Hyperlipidemia E78.2 Hyperlipidemia type: mixed hyperlipidemia Diabetes mellitus E11.9 Diabetes mellitus senior care insulin use: with longwall shearer operator use Diabetes mellitus type: type 2
[2020-03-29] MEDS: magnesium oxide 400 mg tablet 200 MG PO (10:30)
[2020-03-29] MEDS: aspirin 81 mg EC Tablet PO (10:31)
[2020-03-29] MEDS: clopidogrel 75 mg Tablet PO (10:31)
[2020-03-29] MEDS: sertraline 50 mg Tablet PO (10:32)
--- NOTE | 2020-03-29 11:00 | PC.NURSE ---
Awaiting PTT level to be drawn. Originally scheduled for 1420 instead of 1020. Retimed. Called lab to determine timeline. Encouraged to reorder lab as order not seen.
--- NOTE | 2020-03-29 11:15 | PC.NURSE ---
1120 Wastewater Manager on unit to draw pt's PTT. Advised to cancel lab as there were two orders.
[2020-03-29 11:49] LABS: Glucose Point of Care 85 mg/dL (70-110)
[2020-03-29] MEDS: diphenhydrAMINE 50 mg Capsule PO (11:50)
[2020-03-29] MEDS: sodium chloride 0.9% 1,000 ML 50 ML IV (11:50)
--- NOTE | 2020-03-29 12:00 | PC.NURSE ---
IV line started in pt's left FA. Patent and intact. Tolerated well.
--- NOTE | 2020-03-29 12:05 | PC.NURSE ---
PTT result still not showing. finishing lab technician here to take pt. Advised that pt's blood glucose was 85 and will call lab to determine PTT results.
[2020-03-29 12:18] LABS: Partial Thromboplastin Time 114.9 SECONDS (23.9-36.7)
--- NOTE | 2020-03-29 12:20 | PC.NURSE ---
Called lab. PTT result 114.9. Called blender laborer to relay result as requested by Ubaldo. Gilda answered phone and took result.
--- NOTE | 2020-03-29 12:55 | W.PM.OPSUD ---
Surgery/Procedure H&P Update DATE OF PROCEDURE: March 29, 2020 DATE H&P PERFORMED: 03/29/20 H&P UPDATE INFORMATION: I have reviewed H&P completed within last 30 days and I have examined patient prior to procedure PLANNED PROCEDURE: Operation Date: 03/29/20 12:00 Proposed Procedures p Cardiac Catheterization(Left) - Remington Felix MD PATIENT REASSESSED PRIOR TO SEDATION, WITH NO CHANGE NOTED: Yes PHYSICAL EXAM: alert, oriented x 3 and clear to auscultation bilaterally AIRWAY EVAL/ANESTHESIA PLAN: ASA II
[2020-03-29] MEDS: metoprolol tartrate 25 mg Tablet 12.5 MG PO ×2 (13:53→18:48)
[2020-03-29] MEDS: pantoprazole DR 40 mg Tablet PO (13:53)
[2020-03-29 16:56] LABS: Glucose Point of Care 152 mg/dL (70-110)
[2020-03-29] MEDS: enoxaparin 40 mg/0.4 mL Syringe SUBCUT (18:06)
[2020-03-29] MEDS: insulin glargine 100 units/1 mL 15 UNIT SUBCUT (20:42)
[2020-03-29 21:34] LABS: Glucose Point of Care 180 mg/dL (70-110)
[2020-03-30] VITALS (8 sets, daily range): BP systolic 102–142; BP diastolic 45–84; PULSE 61–76; RESP 12–23; TEMP 36.6–36.8; O2SAT 93–97
[2020-03-30 04:43] LABS: Basophils % 0.7 %; Eosinophils # 0.3 10^3/uL (0.0-0.8); Eosinophils % 5.8 %; Hematocrit 36.8 % (37.0-47.0); Hemoglobin 11.5 g/dL (11.5-15.3); Lymphocytes # 1.5 10^3/uL (0.8-4.8); Lymphocytes % 25.6 %; Mean Corpuscular HGB Conc 31.3 g/dL (30.0-36.0); Mean Corpuscular Hemoglobin 30.3 pg (28.0-34.0); Mean Corpuscular Volume 97.1 fL (81-99); Mean Platelet Volume 10.2 fL (7.4-10.4); Monocytes # 0.6 10^3/uL (0.2-0.9); Monocytes % 9.4 %; Neutrophils # 3.4 10^3/uL (1.8-7.7); Neutrophils % 58.3 %; Nucleated Red Blood Cells % 0 %; Platelet Count 309 10^3/cmm (130-400); Red Blood Count 3.79 10^6/uL (4.1-5.3); Red Cell Distribution Width 13.4 % (12.1-15.1); White Blood Count 5.9 10^3/uL (4.0-10.0)
[2020-03-30 04:59] LABS: Anion Gap 16.3 (5-19); Blood Urea Nitrogen 11 mg/dL (8-23); Calcium 9.2 mg/dL (8.5-10.5); Carbon Dioxide 24 mmol/L (22-29); Chloride 104 mmol/L (98-107); Glucose 145 mg/dL (65-115); Osmolality Calculated 289 mOsm/kg (285-295); Potassium 4.3 mmol/L (3.5-5.1); Sodium 140 mmol/L (136-145)
[2020-03-30] MEDS: pantoprazole DR 40 mg Tablet PO (08:09)
[2020-03-30] MEDS: aspirin 81 mg EC Tablet PO (08:10)
[2020-03-30] MEDS: sertraline 50 mg Tablet PO (08:10)
[2020-03-30] MEDS: magnesium oxide 400 mg tablet 200 MG PO (08:10)
[2020-03-30] MEDS: metoprolol tartrate 25 mg Tablet PO (08:11)
[2020-03-30] MEDS: calcium carbonate 500 mg Chew Tablet PO (09:55)
--- NOTE | 2020-03-30 10:20 | PM.DCS ---
Discharge Providers Date of Admission: 03/28/20 20:52 Date of Discharge: March 30, 2020 Attending Provider at Admission: Remington Velásquez MD Attending Provider at Discharge: Blu Rodriguez MD Primary Care Provider: Sunil Baldwin MD Diagnoses at Discharge Discharge Diagnosis (1) Wide-complex tachycardia: Status: Acute Problem details: Thought to be SVT with aberrancy. Placed on metoprolol 25 mg twice daily. (2) NSTEMI (non-ST elevated myocardial infarction): Status: Acute Problem details: Coronary angiogram performed and no flow-limiting lesions. (3) Hypertension: Status: Acute Problem details: Controlled Qualifiers: Hypertension type: essential hypertension Qualified Code(s): I10 - Essential (primary) hypertension (4) Hyperlipidemia: Status: Acute Problem details: Continue statin Qualifiers: Hyperlipidemia type: mixed hyperlipidemia Qualified Code(s): E78.2 - Mixed hyperlipidemia (5) Diabetes mellitus: Status: Acute Problem details: Reviewed blood sugar control with primary care provider Qualifiers: Diabetes mellitus adjunct faculty for medical terminology insulin use: with adjunct faculty for medical terminology use Diabetes mellitus type: type 2 Reason for Visit Reason for Visit: Reason For Visit: cp Hospital Course Hospital Course: Paige is a 74-year-old white female who presented to the emergency department with chest discomfort, and found to be in a wide-complex tachycardia. In the emergency room she received 2 doses of amiodarone 150 mg, and converted to sinus rhythm. While on the floor she received metoprolol IV with conversion to sinus rhythm. While in the hospital troponin was found to be elevated, with a positive delta. Cardiology was consulted. Amiodarone drip was maintained until cardiology could evaluate patient and then she was changed to metoprolol p.o. Cardiology believed the rhythm was consistent with SVT with aberrancy. A coronary angiogram was performed on March 29 without complication demonstrating normal coronaries per verbal report given to me. Patient was without complications and no evidence of hematoma in the right wrist entry site for the angiogram. On March 30 she had no further arrhythmias on the metoprolol and it was thought she could be discharged home. She will follow-up with cardiology and primary care provider. TSH and magnesium level were checked during her hospital stay and normal. Physical Exam Narrative: EXAM NARRATIVE: General exam is no apparent distress Cardiovascular regular in rhythm without murmur Lungs clear Abdomen is soft with positive bowel sounds Extremities no cyanosis clubbing or edema. 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 for service Routin e Exams 03/29/20 10:24 Taken Labs from last 24 hours 03/30/20 03/30/20 03/29/20 04:33 04:33 20:37 WBC 5.9 RBC 3.79 L Hgb 11.5 Hct 36.8 L MCV 97.1 MCH 30.3 MCHC 31.3 RDW 13.4 Plt Count 309 MPV 10.2 Neut % (Auto) 58.3 Lymph % (Auto) 25.6 Mcclain % (Auto) 9.4 Eos % (Auto) 5.8 Baso % (Auto) 0.7 Neut # (Auto) 3.4 Lymph # (Auto) 1.5 Mcclain # (Auto) 0.6 Eos # (Auto) 0.3 Baso # (Auto) 0.0 Nucleated RBC % (a uto) 0 Nucleated RBCs # 0.0 APTT Sodium 140 Potassium 4.3 Chloride 104 Carbon Dioxide 24 Anion Gap 16.3 BUN 11 Creatinine 0.8 Glucose 145 H POC Glucose 180 Calculated Osmolal ity 289 Calcium 9.2 03/29/20 03/29/20 03/29/20 16:47 11:43 11:25 WBC RBC Hgb Hct MCV MCH MCHC RDW Plt Count MPV Neut % (Auto) Lymph % (Auto) Mcclain % (Auto) Eos % (Auto) Baso % (Auto) Neut # (Auto) Lymph # (Auto) Mcclain # (Auto) Eos # (Auto) Baso # (Auto) Nucleated RBC % (a uto) Nucleated RBCs # APTT 114.9 H D Sodium Potassium Chloride Carbon Dioxide Anion Gap BUN Creatinine Glucose POC Glucose 152 85 Calculated Osmolal ity Calcium Vitals: Last Vital Signs Temp 98.1 F 03/30/20 08:00 Pulse 63 03/30/20 08:00 Resp 17 03/30/20 08:00 BP 107/45 03/30/20 08:00 Pulse Ox 95 03/30/20 08:00 Discharge Plan Discharge Patient Disposition: Home, Self-Care Condition: Stable Prescriptions: New metoprolol tartrate 25 mg Tablet 25 mg PO BID Qty: 60 RF: 0 Continued aspirin 81 mg PO DAILY RF: 0 atorvastatin 200 mg PO DAILY RF: 0 Lantus U-100 Insulin 100 unit/mL Solution See Rx Instructions .ROUTE .COMPLEX RF: 0 metformin 500 mg tablet extended release 24 hr 1,000 mg PO BID RF: 0 sertraline 50 mg tablet 50 mg PO DAILY RF: 0 Jardiance 10 mg tablet 10 mg PO DAILY RF: 0 Vitamin C 1,000 mg Tablet Extended Release 1,000 mg PO Q12H RF: 0 iron 325 mg (65 mg iron) Tablet 325 mg PO DAILY RF: 0 magnesium 200 mg Tablet 200 mg PO DAILY RF: 0 Vitamin D3 25 mcg (1,000 unit) Tablet 25 mcg PO DAILY RF: 0 Discontinued lisinopril 10 mg PO DAILY RF: 0 Discharge Orders: Discharge Order (Routine); Ordered 03/30/20 Ordered By: Blu Rodriguez Referrals: Sunil Baldwin MD [Primary Care Provider] - 4-7 days Stefany Rehman MD [Physician] - 2 months (Follow-up with nurse practitioner in cardiology clinic, 1 week. Please arrange. Follow-up with Dr. Rehman 2 to 3 months.) Discharge Diet: Cardiac and Diabetic Discharge Activity: Increase activity as tolerated Activity Restrictions/Additional Instructions: Take all medicine as prescribed Return for any concerns Do not take your metformin until March 2 morning secondary to angiogram dye received. Discharge Attestations Time Spent in Discharge Care*: greater than 30 min Quality Metrics Clinical Quality Measures During this hospital stay, did patient experience: None Coding Level of Care Code Acute Rn Orthopaedics for [place] Fwd Diagnoses Wide-complex tachycardia I47.2 NSTEMI (non-ST elevated myocardial infarction) I21.4 Hypertension I10 Hypertension type: essential hypertension Hyperlipidemia E78.2 Hyperlipidemia type: mixed hyperlipidemia Diabetes mellitus E11.9 Diabetes mellitus adjunct faculty for medical terminology insulin use: with adjunct faculty for medical terminology use Diabetes mellitus type: type 2
--- NOTE | 2020-03-30 14:51 | P.PN_ITS ---
Subjective Subjective: Interval history: No acut events, feels well Medications: Reviewed: Yes Vitals/I&O/Wt Last Vital Signs Temp 98.1 F 03/30/20 11:00 Pulse 65 03/30/20 11:00 Resp 23 H 03/30/20 11:00 BP 142/81 03/30/20 11:00 Pulse Ox 94 03/30/20 11:00 03/29/20 03/30/20 03/30/20 22:59 06:59 14:59 Intake Total 120 / 368.509 Output Total 825 / 825 575 / 1400 200 / 200 Balance -705 / -456.491 -575 / -1031.491 -200 / -200 Weight last 48 hrs Weight 174 lb 1.6 oz Weight 169 lb 11.2 oz Weight 170 lb Physical Exam Const: COMMON NORMALS: no apparent distress, oriented x3 and alert GENERAL APPEARANCE: cooperative, comfortable, well kempt and well hydrated HENMT: COMMON NORMALS: normocephalic, head/scalp atraumatic, hearing grossly normal bilaterally and moist oral mucous membranes HEAD & SCALP: normocephalic and atraumatic Eye: COMMON NORMALS: PERRL, EOMs intact bilaterally, conjunctivae normal and no scleral icterus GENERAL EYE: normal appearance of both eyes CONJUNCTIVA: Yes conjunctivae normal SCLERA: sclerae normal PUPIL: Yes PERRL Neck/C-Spine: COMMON NORMALS: supple and no JVD CAROTIDS: Yes normal carotid upstroke Resp: COMMON NORMALS: clear to auscultation bilaterally and percussion normal AUSCULTATION: clear to auscultation bilaterally, no crackles, no rales, no rhonchi, no wheezes and vesicular breath sounds PERCUSSION: percussion normal Cardio: COMMON NORMALS: no JVD, regular rate, regular rhythm, S1 normal heart sound, S2 normal heart sound and peripheral pulses 2+ throughout PALPATION: normal PMI RATE: regular rate RHYTHM: regular rhythm HEART SOUNDS: S1 normal, S2 normal, no click, no gallops and no murmurs BRUITS: no carotid bruits PERIPHERAL PULSES: pulses 2+ throughout, radial pulses present, femoral pulses present, posterior tibial pulses present and dorsalis pedis pulses present Extremity: GENERAL: No calf tenderness, No clubbing, No cyanosis, No edema and No pallor Neuro: COMMON NORMALS: oriented x3, CN's II-XII intact bilaterally and no focal motor deficits SENSORIUM/ORIENTATION: Yes alert Psych: COMMON NORMALS: thought process normal and speech normal APPEARANCE: Yes well kempt SPEECH: Yes normal speech MOOD & AFFECT: Yes euthymic mood THOUGHT PROCESS: normal thought process THOUGHT CONTENT: Yes normal thought content Data : 03/30/20 04:33 03/30/20 04:33 A&P Assessment and plan (1) Wide-complex tachycardia: Wide-complex tachycardia -SVT with aberrancy. -The rhythm does not meet Brugada criteria for VT. Patient converted to normal sinus rhythm after administration of metoprolol. I think likely this is supraventricular tachycardia with aberrancy (LBBB). -She does have multiple CAD risk factors including hypertension, poorly controlled diabetes mellitus, former smoking history and dyslipidemia. Her troponin has increased to 95 which can be in setting of tachyarrhythmia. -normal coronaries on LHC via right radial approach. -Vagal maneuvers discussed in detail with the patient. Disease etiology management options and ablation discussed with patient. -continue metoprolol tar 25 BID -Follow up with Ms. Solis in 1 week and with me in [facility] in 2-3 months. -BMP in 1 week. Status: Acute (2) NSTEMI (non-ST elevated myocardial infarction): Non-ST elevation MA type II 2/2 demand ischemia from tachyarrhythmia. Status: Acute (3) Hypertension: Status: Acute Qualifiers: Hypertension type: essential hypertension Qualified Code(s): I10 - Essential (primary) hypertension (4) Hyperlipidemia: Status: Acute Qualifiers: Hyperlipidemia type: mixed hyperlipidemia Qualified Code(s): E78.2 - Mixed hyperlipidemia (5) Diabetes mellitus: Status: Acute Qualifiers: Diabetes mellitus type: type 2 Diabetes mellitus termination clerk insulin use: with termination clerk use Additional A&P Information MIKAYLA-resolved Attestations Medical Necessity Statement*: stable to be discharged form cardiac standpoint. 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
== END 2020-03-30 11:58 | disposition home or self-care (01) | DRG 281 ==
LOC: ER 21:06 → ICU 21:21
PROVIDERS: Emergency Medicine; Internal Medicine Cardiovascular Disease; Admitting Provider Internal Medicine; Emergency Provider Emergency Medicine; Family Provider Family Medicine; PCP Family Medicine; Visit Provider Internal Medicine
PROC: 4A023N7 Measurement of Cardiac Sampling and Pressure, Left Heart, Percutaneous Approach (ICD-10-PCS; principal; 2020-03-29 12:00)
DX: I21.4 Non-ST elevation (NSTEMI) myocardial infarction (principal); N17.9 Acute kidney failure, unspecified; F32.9 Major depressive disorder, single episode, unspecified; E11.9 Type 2 diabetes mellitus without complications; K21.9 Gastro-esophageal reflux disease without esophagitis; E78.5 Hyperlipidemia, unspecified; I10 Essential (primary) hypertension; Z87.891 Personal history of nicotine dependence; Z79.4 Long term (current) use of insulin; Z79.82 Long term (current) use of aspirin
CPT/HCPCS: 12345; 36415; 36416; 71045; 80048; 80053; 80306; 81001; 82962; 83036; 83735; 84443; 84484; 85025; 85378; 85730; 93005; 93306; 93452; 96372; 96374; 96375; 99284; C1769; C1887; C1894; J0282; J1644; J1650; J1815; J2001; J2250; J3010; J3490; J7030; J7060; Q0163; Q9967

== ENCOUNTER → 2020-04-06 11:15 | Outpatient (BNVA) | payer MEDICARE, SELFPAY | PROVIDERS: Family Provider Family Medicine; PCP Family Medicine; Visit Provider Nurse Practitioner Family | DX: I47.2 Ventricular tachycardia (principal) | CPT/HCPCS: 80048 ==

== ENCOUNTER 2020-10-12 15:29 | Outpatient (CLI) | payer MEDICARE, SELFPAY ==
--- NOTE | 2020-10-12 15:34 | XR_ITS ---
WS: [id number] Bone mineral density performed on a LOOKSIMA, today Clinical data: POST MENOPAUSAL Comparison study: None. Findings: The first 4 lumbar vertebral bodies demonstrated the bone mineral density of 1.073 g/cm2 for a young adult T score of -0.9. Measurement of the left hip reveals a bone mineral density of 0.823 g/cm2 with a young adult T score of -1.5. Measurement of the right hip reveals the bone mineral density of 0.836 g/cm2 for young adult T score of -1.4. XR/XR DEXA axial skeleton* [id number] Impression: 1. The bone mineral density lumbar spine is normal. 2. The bone mineral density of both hips shows osteopenia..
== END 2020-10-12 15:30 | disposition home or self-care (01) ==
LOC: RADWPI 15:33
PROVIDERS: PCP Family Medicine; Visit Provider Family Medicine
DX: Z78.0 Asymptomatic menopausal state (principal); M85.89 Other specified disorders of bone density and structure, multiple sites
CPT/HCPCS: 77080

== ENCOUNTER 2021-02-07 13:43 | Outpatient (CLI) | payer MEDICARE, SELFPAY ==
--- NOTE | 2021-02-07 13:52 | MM_ITS ---
WS: [id number] BILATERAL DIGITAL SCREENING MAMMOGRAM WITH CAD CLINICAL INFORMATION: SCREENING HISTORY: Screening mammogram. No current complaints. COMPARISON: October 21, 2017 TECHNIQUE: Bilateral CC and MLO. FINDINGS: The breast are composed of extremely dense tissue, which can limit the detection of small underlying mass lesions. Prior lumpectomy left breast.. This was previously evaluated. No suspicious focal mass, asymmetry, calcifications, or architectural distortion. No evidence of malignancy. A few punctate ca [place]cifications. MM/[place] [id number] IMPRESSION: BI-RADS: 2-Benign FOLLOW UP: 1 Year Follow-up Recommend return to annual screening mammography.
== END 2021-02-07 13:44 | disposition home or self-care (01) ==
LOC: RADSHAW 13:46
PROVIDERS: PCP Family Medicine; Visit Provider Family Medicine
DX: Z12.31 Encounter for screening mammogram for malignant neoplasm of breast (principal)
CPT/HCPCS: 77067

== ENCOUNTER 2021-03-01 08:30 | Outpatient (CLI) | payer MEDICARE, SELFPAY ==
--- NOTE | 2021-03-01 08:38 | CT_ITS ---
WS: [id number] LDCT LUNG CANCER SCREENING HISTORY: HX OF TOBACCO USE TECHNIQUE: Axial imaging performed from the apices to 1 cm below the costophrenic angles. Coronal and sagittal reformats are submitted with axial MIP series. All CT scans at [facility] use at least one of these dose optimization techniques: automated exposure control; mA and/or kV adjustment per patient size (includes targeted exams where dose is matched to clinical indication); or iterativ e reconstruction. DLP: 56.96 mGy.cm DIvol: 1.58 mGy COMPARISON: None available. Diagnostic quality: Satisfactory Lung Nodules: Groundglass nodule in the superior LEFT lower lobe measures 4 mm in diameter, image 160 of series 3. There are few at additional benign scattered nodules which are micronodules in the uppe r lobes. 3 mm nodule periphery RIGHT lower lobe, image 161 of series 3. Lungs: Hyperexpanded lungs from mild emphysema. Heart: Mild cardiomegaly. Coronary artery calcifications are extensive. Most significant calcificatio n in the LEFT anterior descending and LEFT circumflex arteries. Recent echocardiogram has been perfor med on 03/29/2020. Other findings: Pulmonary artery slightly large. Mild thoracic spondylosis. Slight increase in the th oracic kyphosis. CT/CT lung screening [id number] IMPRESSION: LUNG-RADS: 2-Benign Appearance or Behavior FOLLOW UP: 12 Month: Continue annual screening with LDCT OTHER FINDINGS (S MODIFIER): None.
== END 2021-03-01 08:31 | disposition home or self-care (01) ==
PROVIDERS: PCP Family Medicine; Visit Provider Physician Assistant
DX: Z12.2 Encounter for screening for malignant neoplasm of respiratory organs (principal); Z87.891 Personal history of nicotine dependence; M47.814 Spondylosis without myelopathy or radiculopathy, thoracic region
CPT/HCPCS: 71271

== ENCOUNTER 2021-04-18 08:32 | Outpatient (CLI) | payer MEDICARE, SELFPAY ==
--- NOTE | 2021-04-18 08:38 | MR_ITS ---
WS: [id number] MRI RIGHT KNEE NONCONTRAST TECHNIQUE: Axial PD, coronal PD fat sat, coronal PD, sagittal PD, and sagittal PD fat-sat images obta ined. CLINICAL INFORMATION: RIGHT KNEE PAIN COMPARISON: None. FINDINGS: Distal quadriceps and patella tendons are intact. Hypertrophic patella. Moderate suprapatellar effusi on. Hypertrophic patella. Anterior and posterior cruciate ligaments are intact. Small amount of prepa tellar soft tissue edema. Moderate joint space narrowing medial lateral joint compartments with grade III chondromalacia. Edema along the anterior tibial spines. Chronic appearing intrasubstance signal abnormality involving the posterior horns medial and lateral meniscus with mild lateral meniscal extr usion. Suggestion of a tiny radial tear involving the anterior horn lateral meniscus near the menisca l root. No other acute appearing tears. Mild lateral subluxation of the patella, which may be due to positioning. Medial and lateral patellar retinacula appear intact. Moderate chondromalacia patella worse involving the lateral patella facet. No subchondral edema. Small popliteal cyst measuring 1.2 x 1.1 CM. Medial and lateral collateral lig aments appear intact. MR/MR knee RT wo con* [id number] IMPRESSION: 1. Moderate suprapatellar effusion. 2. Anterior and posterior cruciate ligaments are intact. 3. Chronic thinning of the medial and lateral meniscus with chronic appearing intrasubstance signal abnormality involving the posterior horns medial and late ral meniscus.Suggestion of a tiny radial tear involving the anterior horn later al meniscus near the meniscal root. 4. 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 Edema along the anterior tibial spines and proximal tibial plateau. This is likely degener ative. 5. Mild lateral subluxation of the patella. Patellar retinaculum appears intac t. This may be due to positioning but recommend correlation for patellar instab ility. 6. Moderate chondromalacia involving the lateral patella facet. No subchondral edema. 7. Tiny popliteal cyst measuring 12 x 11 mm. 8. Medial and lateral collateral ligaments appear intact. Outbridge grading:
== END 2021-04-18 08:33 | disposition home or self-care (01) ==
LOC: RADSHAW 08:35
PROVIDERS: PCP Family Medicine; Visit Provider Nurse Practitioner Family
DX: M25.561 Pain in right knee (principal); M25.461 Effusion, right knee; M71.21 Synovial cyst of popliteal space [Baker], right knee; M22.41 Chondromalacia patellae, right knee
CPT/HCPCS: 73721

== ENCOUNTER → 2021-04-23 09:11 | Outpatient (BNVA) | payer MEDICARE, SELFPAY | PROVIDERS: PCP Family Medicine; Referring Provider Nurse Practitioner Family; Visit Provider Orthopaedic Surgery | DX: S89.91XA Unspecified injury of right lower leg, initial encounter (principal); S89.92XA Unspecified injury of left lower leg, initial encounter; X58.XXXA Exposure to other specified factors, initial encounter | CPT/HCPCS: 73560; 73565 ==

== ENCOUNTER → 2022-07-01 11:11 | Outpatient (BNVA) | payer MEDICARE, SELFPAY | PROVIDERS: PCP Family Medicine; Visit Provider Internal Medicine Cardiovascular Disease | DX: R00.0 Tachycardia, unspecified (principal); I10 Essential (primary) hypertension; Z87.891 Personal history of nicotine dependence | CPT/HCPCS: 99213; 99214 ==

== ENCOUNTER 2022-07-16 08:18 | Outpatient (CLI) | payer MEDICARE, SELFPAY ==
--- NOTE | 2022-07-16 08:25 | CT_ITS ---
WS: [id number] Exam: CT chest w con* [id number] Date/Time of Exam: 07/16/2022 8:28 AM Reason For Exam: LUNG NODULE DLP: 694.[address] scans at [facility] use at least one of these dose optimization techniques: automated e xposure control; mA and/or kV adjustment per patient size (includes targeted exams where dose is matc hed to clinical indication); or iterative reconstruction. Comparison with the lung screening CT scan of the chest performed 03/01/2021. Previously noted 4 mm groundglass nodule in the lingular segment of the left upper lobe is not identi fied on today's exam and has apparently resolved. No suspicious nodule or mass in either lung. No acu te infiltrate. No pleural effusion. The lungs are fully expanded. The trachea and mainstem bronchi ar e patent. The thoracic aorta and great vessels are unremarkable in appearance. The central pulmonary arteries are clear. No mediastinal or hilar lymphadenopathy. No pericardial effusion. Small hiatal he rnia. CT sections the upper abdomen are unremarkable. No destructive bone lesions. Moderate degenerat dixon changes of the dorsal spine. Coronary artery calcifications. CT/CT chest w con* [id number] IMPRESSION: 1. Previously noted 4 mm groundglass nodule in the lingular segment left upper lobe is not identified on today's exam and has apparently resolved. 2. No suspicious pulmonary mass or lymphadenopathy in the chest. 3. Small hiatal hernia. Coronary artery calcifications.
[2022-07-16 09:02] LABS: Blood Urea Nitrogen 18 mg/dL (8-23)
[2022-07-16] MEDS: iodixanol 320 mg/mL 100mL Btl IV (09:12)
== END 2022-07-16 08:19 | disposition home or self-care (01) ==
LOC: RAD 08:20
PROVIDERS: PCP Family Medicine; Visit Provider Family Medicine
DX: R91.1 Solitary pulmonary nodule (principal); K44.9 Diaphragmatic hernia without obstruction or gangrene; I25.10 Atherosclerotic heart disease of native coronary artery without angina pectoris
CPT/HCPCS: 71260; 82565; 84520

== ENCOUNTER → 2023-07-01 10:28 | Outpatient (BNVA) | payer MEDICARE, SELFPAY | PROVIDERS: PCP Family Medicine; Visit Provider Internal Medicine Cardiovascular Disease | DX: I47.20 Ventricular tachycardia, unspecified (principal); Z86.79 Personal history of other diseases of the circulatory system; I10 Essential (primary) hypertension; E11.9 Type 2 diabetes mellitus without complications; Z79.4 Long term (current) use of insulin; E78.2 Mixed hyperlipidemia; K21.9 Gastro-esophageal reflux disease without esophagitis; Z87.891 Personal history of nicotine dependence | CPT/HCPCS: 99214 ==

== ENCOUNTER → 2024-03-23 08:20 | Outpatient (BNVA) | payer MEDICARE, SELFPAY | PROVIDERS: PCP Family Medicine; Visit Provider Physician Assistant | DX: M65.312 Trigger thumb, left thumb | CPT/HCPCS: 73130; 99214 ==

== ENCOUNTER 2024-04-07 08:22 | Day surgery (SDC) | payer MEDICARE, SELFPAY ==
[2024-04-07] VITALS (7 sets, daily range): BP systolic 118–162; BP diastolic 54–89; PULSE 65–84; RESP 17–20; TEMP 36.1–36.5; O2SAT 94–97; BMI 31.5
--- NOTE | 2024-04-07 08:50 | W.PM.OPSUD ---
Surgery/Procedure H&P Update DATE OF PROCEDURE: April 07, 2024 DATE H&P PERFORMED: 03/23/20 H&P UPDATE INFORMATION: I have reviewed H&P completed within last 30 days, I have examined patient prior to procedure and No changes to prior documentation PREOP DIAGNOSIS: Left thumb trigger PRIMARY INDICATION FOR PROCEDURE: Left thumb trigger PLANNED PROCEDURE: Operation Date: 04/07/24 09:30 Proposed Procedures p Trigger Finger Release/Left trigger thumb release(Left) - Rah Bermeo DO
--- NOTE | 2024-04-07 08:54 | ANES.PREANE2 ---
Pre-Anesthetic Assessment Height/Weight: Height 1.55 m Weight 75.75 kg Temp Pulse Resp BP Pulse Ox O2 Del Method 97 F L 68 18 162/89 97 Room Air 04/07/24 08:43 04/07/24 08:43 04/07/24 08:43 04/07/24 08:43 04/07/24 08:43 04/07/24 08:43 Preop Diagnosis: Left thumb trigger Operation Date: 04/07/24 09:30 Proposed Procedures p Trigger Finger Release/Left trigger thumb release(Left) - Rah Bermeo DO Familial anesthetic complications: None Was Beta Naa taken within 24 hours: N/A Was Clonidine taken within 24 hours: N/A Last intake: > 8 hrs Social No alcohol and No tobacco Exam alert, oriented x 3, clear to auscultation bilaterally and regular rate & rhythm CV/HEM Arrythmia (PSVT w/ LBBB appearing at wide-complex, on metoprolol. patient says no issues in the last 4 years) GI Gastroesophageal Reflux Disease Metabolic Diabetes Mellitus Anesthetic Plan ASA status: 3 Anesthesia: Choice Risk of > 500 ml blood loss (7ml/kg in children): No Medications/Allergies Home Medications Medication Instructions Recorded Confirmed Last Taken Type cholecalciferol (vitamin D3) 25 25 mcg PO DAILY 03/28/20 04/06/24 04/06/24 History mcg (1,000 unit) tablet (Vitamin D3) empagliflozin 10 mg tablet 10 mg PO DAILY 03/28/20 04/06/24 04/06/24 History (Jardiance) metformin 500 mg tablet,extended 1,000 mg PO BID 03/28/20 04/06/24 04/06/24 History release 24 hr sertraline 50 mg tablet 50 mg PO DAILY 03/28/20 04/06/24 04/06/24 History magnesium 200 mg tablet 400 mg PO DAILY 04/06/20 04/06/24 04/06/24 History omeprazole 20 mg capsule,delayed 20 mg PO DAILY 04/06/20 04/06/24 04/07/24 07:00 History release atorvastatin 20 mg tablet 20 mg PO DAILY 06/08/20 04/06/24 04/06/24 History metoprolol tartrate 25 mg tablet 25 mg PO BID #60 tabs 06/08/20 04/06/24 04/07/24 07:00 Rx lisinopril 2.5 mg tablet 5 mg PO DAILY 07/01/22 04/06/24 04/06/24 History pioglitazone 15 mg tablet 15 mg PO DAILY 07/01/22 04/06/24 04/06/24 History aspirin 81 mg tablet,delayed 81 mg PO DAILY 07/01/23 04/06/24 04/01/24 History release (Adult Low Dose Aspirin) insulin glargine 100 unit/mL 25 unit SUBCUT DAILY 07/01/23 04/06/24 04/06/24 History subcutaneous solution (Lantus U-100 Insulin) naproxen 500 mg tablet (Naprosyn) 500 mg PO BID PRN Pain 07/01/23 04/06/24 Unknown History vitamins A,C,E-fmpd-ehijar 4,296 1 cap PO DAILY 07/01/23 04/06/24 04/05/24 History mcg-226 mg-90 mg capsule (ICaps AREDS) ondansetron 4 mg disintegrating 4 mg PO Q8H PRN nausea and 04/07/24 Unknown Rx tablet vomiting 3 days #9 tabs tramadol 50 mg tablet 50 mg PO Q6H PRN pain #20 tabs 04/07/24 Unknown Rx Allergies Allergy/AdvReac Type Severity Reaction Status Date / Time No Known Allergies Allergy Verified 04/07/24 08:37 [facility] Anesthesia Medical History Depression GERD (gastroesophageal reflux disease) Diabetes mellitus Reviewed blood sugar control with primary care provider Hyperlipidemia Continue statin Hypertension Controlled Surgical History History of lumpectomy of left breast H/O colonoscopy History of adenoidectomy History of tonsillectomy Tubal ligation status Family History Denies family history of Hyperlipidemia Lung disease Hypertension Social History Smoking and tobacco/nicotine status: former use of tobacco/nicotine Alcohol intake: never Substance/Drug Use: never Household members: spouse Housing: House Data Anesthesia Cardiac Studies: Echocardiogram Ultrasound 03/29/20
[2024-04-07] MEDS: ketorolac 30 mg/mL INJ IVP (08:57)
[2024-04-07] MEDS: sodium chloride 0.9% 1,000 ML 30 ML IV (08:57)
[2024-04-07] MEDS: acetaminophen 1,000 MG/100 ML PIGGYBACK 400 MG IV (08:57)
[2024-04-07] MEDS: scopolamine 1.5 Patch 1 PATCH TRANSDERMA (08:58)
[2024-04-07] MEDS: ceFAZolin 2,000 MG in sodium chloride 0.9% (plus) 50 ML 100 MG IV (09:12)
[2024-04-07] MEDS: ROPivacaine 0.5% SDV 30 mL 150 MG INJECTION (09:14)
[2024-04-07] MEDS: BUPivacaine 0.5% INJ 30 mL INJECTION (09:14)
--- NOTE | 2024-04-07 09:43 | PM.OP ---
Operative Report Date of procedure: April 07, 2024 Surgeon: Rah Bermeo DO Wire Preparation Machine Tender: John Bermeo PA-C: PA was necessary for assistance in this case with hand positioning to execute the procedure, retraction and protection of neurovascular structures as well as to assist with wound closure and dressing application. Procedure: Preoperative diagnosis: Left thumb trigger post-op diagnosis: Left?thumb?trigger Procedure done: Left?thumb?trigger?release Surgeon: Rah Bermeo DO Estimated blood loss: 2 mL Tourniquet time: 4 minutes Anesthesia: MAC/local IV fluids: See anesthesia record Complications: None Findings: See operative report narrative Condition: stable Disposition: same day Brief History: Patient presents to the outpatient setting with findings consistent with a Left?thumb?trigger. Patient has been worked up in the outpatient setting and is failed conservative treatment approach.? Patient has a Left?thumb?trigger?that she has tried treating conservatively with recurrence of her?triggering pain.? We talked about treatment options and ultimately patient would like to proceed with a Left?thumb?trigger?release. At this point time I feel this is most appropriate as this is her next best step in treatment option.? We talked about the risk benefits complications and alternatives with surgical nonsurgical treatment options.? Understanding risk of surgery patient agrees to proceed with a Left?thumb?trigger?release. All questions answered. Procedure: Patient was seen evaluated in the preoperative holding area.? Consent was reviewed and signed with patient.? Correct extremity was then marked.? Patient was then seen and evaluated by the anesthesia department once cleared for surgery patient was then taken back to the operative suite patient was placed in supine position and all bony prominences well-padded the patient was properly secured to the bed.? Armboard was applied to the Left upper extremity and the Left upper extremity was then placed with a nonsterile tourniquet to the Left upper arm.? This point time the Left upper extremity was then prepped and draped in standard orthopedic fashion.? A final timeout was performed.? Patient received appropriate preoperative antibiotics. Esmarch tourniquet was used exsanguinate the Left upper extremity and tourniquet was insufflated to 250 mmHg.? I identified patient's MP flexion crease marked appropriate incision transversely across the flexion crease within Charu's lines sharp scalpel incision was made only through skin.? Once this was done I switched to Littler dissection scissors this I then subsequently spread longitudinally in the planes of the digital nerves.? Once these were identified these were protected by my nursing assistants teacher with Kasdan retractors.? Next I identified directly over the A1 sandra of the Left?thumb.? This was significantly thickened and identified to be the area of patient's?thumb?triggering.? I used sharp scalpel to incise the A1 sandra and then utilized my nursing assistants teacher to retract the ability and under loupe magnification released the entirety of the A1 sandra both proximally and distally up to the oblique sandra.? This point time the tendon was then inspected and found to be healthy there was some inflammation around the tendon itself but no evidence of tearing and no need for any debridement.? The Ragnell was used to pull the tendon out of the incision and there was no mechanical?triggering I then took the patient's?thumb?through range of motion no recurrent?triggering was noted.? Patient was then subsequently awakened by anesthesia and the arm was able to make a fist flex and extend the digit without any issues and no evidence of retriggering. ?I then let the tourniquet down identified and maintained exact hemostasis with bipolar electrocautery irrigated the wound bed and then closed the incision with interrupted nylon suture. Incision sites were then dressed with Xeroform 4 x 4's Kerlix Sera wrap and an Bishnu wrap.? Patient was then awakened from anesthesia and taken to PACU in stable condition. Disposition: Patient taken to PACU in stable condition recovering well.? Dressing on in place clean dry and intact.? Patient was receive appropriate discharge instruction as well as pain medication postoperatively.? Patient may be allowed weightbearing as tolerated to the Left hand and encourage range of motion once dressing come down after 72 hours.? Patient to follow-up with me in the office in 2 weeks.? Patient understands and agrees with current plan.? All questions answered.
--- NOTE | 2024-04-07 09:49 | P.BOP_ITS ---
Date of Procedure: [April 07, 2024] Surgeon: [Dr. Bermeo DO] Furnace Process Plant Operator(s): [John Bermeo PA-C] Procedure(s) performed: [Left thumb trigger release] Findings of the procedure(s): [Left thumb trigger finger] Estimated blood loss: [2 ml] Specimen(s) removed: [N/A] Post-operative diagnosis: [Left thumb trigger finger]
--- NOTE | 2024-04-07 09:50 | P.PCN_ITS ---
PACU note Narrative: Patient is a 78-year-old female just underwent a left trigger thumb release. Patient transferred to PACU in stable condition. Pain is well controlled. Dressing on hand is dry and in place. Patient's fingers are warm and well- perfused. Patient can wiggle fingers. normal cap refill under 2 seconds. Patient has normal elbow range of motion. Sensation to hand intact. Exam: awake Disposition: discharged
[2024-04-07 10:23] LABS: Glucose Point of Care 115 mg/dL (70-110)
--- NOTE | 2024-04-07 10:45 | ANE.PACU2 ---
Inpatient post-anesthesia follow up: Airway intact: Yes Vital signs: Temperature 97.4 F Pulse Rate 70 Respiratory Rate 18 Blood Pressure 120/73 Pulse Oximetry 96 Oxygen Delivery Me thod Room Air Oxygen Flow Rate Fraction of Inspir ed Oxygen Hydration adequate: Yes Nausea and vomiting: No Pain level: 1 Mental status: Baseline
== END 2024-04-07 10:49 | disposition home or self-care (01) ==
PROVIDERS: PCP Family Medicine; Visit Provider Student in an Organized Health Care Education/Training Program
PROC: (CPT 26055; principal; 2024-04-07 09:20)
DX: M65.312 Trigger thumb, left thumb (principal); E11.9 Type 2 diabetes mellitus without complications
CPT/HCPCS: 26055; 36416; 82962; J0131; J0690; J1885; J2704; J2795; J3010; J3490; J7030

== ENCOUNTER → 2024-08-04 14:00 | Outpatient (BNVA) | payer MEDICARE, SELFPAY | PROVIDERS: PCP Family Medicine; Visit Provider Internal Medicine Cardiovascular Disease | DX: R00.1 Bradycardia, unspecified (principal); Z86.79 Personal history of other diseases of the circulatory system; I10 Essential (primary) hypertension; Z87.891 Personal history of nicotine dependence | CPT/HCPCS: 99214 ==

== ENCOUNTER 2024-09-10 06:47 | Outpatient (CLI) | payer MEDICARE, SELFPAY ==
--- NOTE | 2024-09-10 07:00 | USCV_ITS ---
Paige Robert Age: 79 Gender: F : 1945 Exam Date: 09/10/2024 07:40 Ordering Phys: Remington Felix MD ([email or web address]) Technologist: Jamey Juarez [place] [facility] [place]: [place] BP: 126 / 77 HR: 61 Rhythm: Sinus Technical Quality: Adequate MEASUREMENTS (Male / Female) Normal Values 2D ECHO LV Diastolic Diameter PLAX 4.3 cm 4.2 - 5.9 / 3.9 - 5.3 cm IVS Diastolic Thickness 0.8 cm 0.6 - 1.0 / 0.6 - 0.9 cm IVS Systolic Thickness 1.3 cm LVPW Diastolic Thickness 1.7 cm 0.6 - 1.0 / 0.6 - 0.9 cm LVPW Systolic Thickness 1.8 cm LVOT Diameter 2.2 cm LV Ejection Fraction 2D Teich 47.3 % LV Ejection Fraction MOD 4C 56.4 % LV Ejection Fraction MOD 2C 67.1 % LV Ejection Fraction 2C AL 67.9 % LA Diameter 3.3 cm RA Systolic Volume 4C AL 22.9 ml RA Systolic Volume 4C MOD 22.7 ml LA Sys Volume AL 47.6 cm cubed LA Sys Volume Index AL 25.9 cm cubed/m squared Aorta at Sinotubular Diameter 1.8 cm IVC Diameter 1.4 cm M-MODE LA Ao Ratio MM 1.5 AV Cusp Separation MM 0.7 cm DOPPLER AV Peak Velocity 195.0 cm/s LVOT Peak Velocity 85.0 cm/s AV Area Cont Eq vti 1.7 cm squared AV Area Cont Eq pk 1.6 cm squared MV Peak Velocity 439.3 cm/s MV Area PHT 3.2 cm squared Mitral E to A Ratio 1.2 TV Peak Velocity 323.7 cm/s TR Peak Velocity 364.0 cm/s TR Peak Gradient 53.0 mmHg TR Mean Velocity 267.0 cm/s TR Mean Gradient 30.8 mmHg TR Velocity Time Integral 109.6 cm PV Peak Velocity 98.0 cm/s RV Ejection Time 0.3 s FINDINGS Left Ventricle Normal left ventricular size, systolic function and wall thickness, with no regional wall motion abnormalities. Left ventricular ejection fraction is estimated at 55 %. Grade II/IV diastolic dysfunction, moderately elevated filling pressures. Right Ventricle The right ventricle is normal in size and function. RVSP could not be calculated due to incomplete tricuspid regurgitation velocity profile. Right Atrium The right atrium is normal in size. Left Atrium The left atrium is normal in size. Mitral Valve Moderately thickened mitral valve. Mitral annular calcification. No mitral valve stenosis. Moderate mitral valve regurgitation. Aortic Valve Moderate aortic valve calcification. Mild aortic valve stenosis, mean gradient 8.8 mmHg, DEON 1.7 cm squared. Moderate aortic valve regurgitation. Tricuspid Valve Thickened tricuspid valve. No tricuspid valve stenosis. Trace tricuspid valve regurgitation. Pulmonic Valve Structurally normal pulmonic valve without significant stenosis. There is no pulmonic regurgitation. Pericardium Normal pericardium without effusion. Aorta Normal ascending aorta dimension. IVC The inferior vena cava appears normal. CONCLUSIONS Normal left ventricular size, systolic function and wall thickness, with no regional wall motion abnormalities. Left ventricular ejection fraction is estimated at 55 %. Grade II/IV diastolic dysfunction, moderately elevated filling pressures. Moderate aortic valve calcification. Mild aortic valve stenosis, mean gradient 8.8 mmHg, DEON 1.7 cm squared. Moderate aortic valve regurgitation. Moderately thickened mitral valve. Mitral annular calcification. No mitral valve stenosis. Moderate mitral valve regurgitation. There is no pericardial effusion. Right atrial pressure is around 5 mm of mercury. Remington Felix MD (Electronically Signed) Final Date: 10 September 2024 12:47 S
== END 2024-09-10 06:48 | disposition home or self-care (01) ==
LOC: RAD 06:48
PROVIDERS: PCP Family Medicine; Visit Provider Internal Medicine Cardiovascular Disease
DX: I50.30 Unspecified diastolic (congestive) heart failure (principal); I34.81 Nonrheumatic mitral (valve) annulus calcification; I34.0 Nonrheumatic mitral (valve) insufficiency; I70.0 Atherosclerosis of aorta; I35.1 Nonrheumatic aortic (valve) insufficiency; I35.2 Nonrheumatic aortic (valve) stenosis with insufficiency
CPT/HCPCS: 93306

== ENCOUNTER → 2025-08-10 13:50 | Outpatient (BNVA) | payer MEDICARE, SELFPAY | PROVIDERS: PCP Family Medicine; Visit Provider Internal Medicine Cardiovascular Disease | DX: I10 Essential (primary) hypertension (principal); I47.10 Supraventricular tachycardia, unspecified; I08.0 Rheumatic disorders of both mitral and aortic valves; Z87.891 Personal history of nicotine dependence | CPT/HCPCS: 99214 ==